=== PATIENT | female | born 1960 | race Caucasian/White ===

== ENCOUNTER 2018-10-31 11:20 | Emergency (ER) | payer BC ==
[2018-10-31 11:43] LABS: ABS Eosinophils 0.1 10^3/ul (0-0.6); ABS Lymphocytes 1.6 10^3/ul (1.0-4.8); ABS Monocytes 0.7 10^3/ul (0-0.8); ABS Neutrophils 6.1 10^3/ul (1.5-7.7); Hematocrit 45 % (35-47); Hemoglobin 15.2 g/dL (12.0-16.0); Lymphocyte % 18.7 %; Mean Corpuscular HGB Conc 34 g/dL (31-36); Mean Corpuscular Hemoglobin 31 pg (27-31); Mean Corpuscular Volume 91 fL (80-97); Mean Platelet Volume 7.5 fL (7.4-10.4); Platelet Count 273 10^3/uL (150-450); Red Blood Count 4.92 10^6 /uL (3.70-4.87); Red Cell Distribution Width 13 % (10-15); White Blood Count 8.5 10^3/uL (3.5-10.8)
--- NOTE | 2018-10-31 12:06 | ED ---
HPI Chest Pain - HPI Summary HPI Summary: A 58 y/o female presents to [facility] with a chief complaint of chest pain for the past two weeks, worsening today. At triage she rated her pain as an 8/10 in severity. She also c/o SOB and left arm numbness. The patient was walking in a garden when those symptoms started. She denies N/V, fevers or chills. She denies a Hx of bloodclots in her legs or lungs, [place], DM, or HTN. FHx of cardiac disease on mother's side. She has not had a stress test done. She is a former smoker, smoking as a teenager. - History of Current Complaint Chief Complaint: EDChestPainROMI Time Seen by Provider: 10/31/18 11:32 Hx Obtained From: Patient Onset/Duration: Started Weeks Ago, Still Present Timing: Constant, Lasting Weeks Initial Severity: Severe Current Severity: Severe Pain Intensity: 8 Pain Scale Used: 0-10 Numeric Chest Pain Location: Diffuse Chest Pain Radiates: Yes Chest Pain Radiates To:: Arm - left Aggravating Factor(s): Nothing Alleviating Factor(s): Nothing Associated Signs and Symptoms: Positive: Numbness - left arm, Shortness of Breath. Negative: Fever - Allergy/Home Medications Allergies/Adverse Reactions: Allergies Allergy/AdvReac Type Severity Reaction Status Date / Time bacitracin Allergy Rash Verified 10/31/18 11:26 phenytoin [From Dilantin] Allergy Rash Verified 10/31/18 11:26 Flu Shot Allergy See Comment Uncoded 10/31/18 11:26 PMH/Surg Hx/FS Hx/Imm Hx Endocrine/Hematology History: Denies: Hx Diabetes Cardiovascular History: Denies: Hx Hypertension, Hx Myocardial Infarction Musculoskeletal History: Denies: Hx Osteoporosis Neurological History: Reports: Other Neuro Impairments/Disorders - brain tumor with seizures occassionaly since - Surgical History Surgery Procedure, Year, and Place: brain tumor 1995 benign,appendectomy, csection,left leg deb Infectious Disease History: No Infectious Disease History: Denies: Traveled Outside the [place] in Last 30 Days - Family History Known Family History: Positive: Cardiac Disease - maternal - Social History Alcohol Use: Daily Alcohol Amount: 2-3 beers daily Substance Use Type: Reports: None Smoking Status (MU): Former Smoker Review of Systems Negative: Fever, Chills Negative: Blurred Vision Positive: Chest Pain Positive: Shortness Of Breath Negative: Vomiting, Nausea Positive: Numbness - left arm. Negative: Headache All Other Systems Reviewed And Are Negative: Yes Physical Exam - Summary Physical Exam Summary: GENERAL: Patient is a well-developed and nourished F who is lying comfortable in the stretcher. Patient is not in any acute respiratory distress. HEAD AND FACE: Normocephalic EYES: PERRLA, EOMI x 2. EARS: Hearing grossly intact. MOUTH: Oropharynx within normal limits. NECK: Supple, trachea is midline, no adenopathy, no JVD, no carotid bruit. CHEST: Symmetric, no tenderness at palpation LUNGS: Clear to auscultation bilaterally. No wheezing or crackles. CVS: Regular rate and rhythm, S1 and S2 present, no murmurs or gallops appreciated. ABDOMEN: Soft, non-tender. Bowel sounds are normal. No abnormal abdominal pulsations. EXTREMITIES: Full ROM in all major joints, no edema, no cyanosis or clubbing. NEURO: Alert and oriented x 3. No acute neurological deficits. Speech is normal and follows commands. SKIN: Dry and warm Triage Information Reviewed: Yes Vital Signs On Initial Exam: Initial Vitals Temp Pulse Resp BP Pulse Ox 97.2 F 114 16 160/112 96 10/31/18 11:22 10/31/18 11:22 10/31/18 11:22 10/31/18 11:22 10/31/18 11:22 Vital Signs Reviewed: Yes Diagnostics - Vital Signs Vital Signs Temp Pulse Resp BP Pulse Ox 10/31/18 11:37 99 15 181/119 97 10/31/18 11:36 104 17 93 10/31/18 11:22 97.2 F 114 16 160/112 96 - Laboratory Lab Results: Lab Results 10/31/18 Range/Units 11:32 WBC 8.5 (3.5-10.8) 10^3/uL RBC 4.92 H (3.70-4.87) 10^6 /uL Hgb 15.2 (12.0-16.0) g/dL Hct 45 (35-47) % MCV 91 (80-97) fL MCH 31 (27-31) pg MCHC 34 (31-36) g/dL RDW 13 (10-15) % Plt Count 273 (150-450) 10^3/uL MPV 7.5 (7.4-10.4) fL Neut % (Auto) 72.3 % Lymph % (Auto) 18.7 % [place] % (Auto) 7.7 % Eos % (Auto) 1.0 % Baso % (Auto) 0.3 % Absolute Neuts (auto) 6.1 (1.5-7.7) 10^3/ul Absolute Lymphs (auto) 1.6 (1.0-4.8) 10^3/ul Absolute Monos (auto) 0.7 (0-0.8) 10^3/ul Absolute Eos (auto) 0.1 (0-0.6) 10^3/ul Absolute Basos (auto) 0.0 (0-0.2) 10^3/ul Absolute Nucleated RBC 0.0 10^3/ul Nucleated RBC % 0.0 Result Diagrams: 10/31/18 11:32 10/31/18 08:22 Lab Statement: Any lab studies that have been ordered have been reviewed, and results considered in the medical decision making process. - Radiology CXR Radiology Interpretation Completed By: Radiologist Summary of Radiographic Findings: NO ACTIVE CARDIOPULMONARY DISEASE IS NOTED. ED physician has reviewed this imaging report. - EKG 11:28 Cardiac Rate: NL - 95 bpm EKG Rhythm: Sinus Rhythm Summary of EKG Findings: NSR at 95 bpm, left atrial enlargement. Re-Evaluation - Re-Evaluation First Eval Re-Evaluation Time: 13:50 Change: Unchanged Comment: She did not respond to NTG. Breathing in worsens her pain. Second Eval Re-Evaluation Time: 14:59 Change: Improved Comment: Pt reports feeling much better. Chest Pain Course/Dx - Course Course Of Treatment: A 58 y/o female presents to [facility] with a chief complaint of chest pain for the past two weeks, worsening today. The physical exam was unremarkable. EKG at 11:28 showed NSR at 95 bpm, left atrial enlargement. Bloodwork and chemistries obtained and are WNL. CXR impression:NO ACTIVE CARDIOPULMONARY DISEASE IS NOTED. In the ED course the patient was given Aspirin PO, and NTG but CP did not respond to NTG and so she was given Flexeril PO and Tramadol PO with much improvement. I suspect that her pain is most likely musculoskeletal, no concern for aortic dissection, No concern for PE, no elevated D-dimer, HEART Score is 2. I discussed results with patient, and she reports feeling better. She is hemodynamically stable and safe for discharge. Strict return precautions given and she will otherwise follow up with her PCP and register clerk given FHx of cardiovascular disease. - Diagnoses Provider Diagnoses: Pleuritic chest pain Discharge - Sign-Out/Discharge Documenting (check all that apply): Patient Departure - DC Patient Received Moderate/Deep Sedation with Procedure: No - Discharge Plan Condition: Stable Disposition: HOME Prescriptions: Cyclobenzaprine TAB* [Flexeril 10 MG TAB*] 10 mg PO TID #15 tab Tramadol HCl 50 mg PO TID #12 tablet MDD 3 Patient Education Materials: Chest Pain (DC) Referrals: Benjamin Arriaga MD [Primary Care Provider] - (1-3 days) Jamir Harvey MD [Medical Doctor] - (1-3 days) Additional Instructions: Follow up with your primary care physician and cardiology in 1-3 days. RETURN TO THE EMERGENCY DEPARTMENT FOR CHANGING OR WORSENING SYMPTOMS. - Billing Disposition and Condition Condition: STABLE Disposition: Home - Attestation Statements Document Initiated by Joeibe: Yes Documenting Scribe: Aman Gomes Provider For Whom Edwin is Documenting (Include Credential): Coby Juarez MD Scribe Attestation: I, Aman Gomes, scribed for Coby Juarez MD on 10/31/18 at 1723. Scribe Documentation Reviewed: Yes Provider Attestation: The documentation as recorded by the Aman squires accurately reflects the service I personally performed and the decisions made by me, Nba Juarez MD Status of Scribe Document: Viewed
[2018-10-31 12:09] LABS: Albumin 4.3 g/dL (3.2-5.2); Albumin/Globulin Ratio 1.6 (1-3); BUN/Creatinine Ratio 13.3 (8-20); Calcium 9.7 mg/dL (8.6-10.3); EGFR Non-African American 79.4 (>60); Globulin 2.7 g/dL (2-4); Potassium 4.2 mmol/L (3.5-5.0); Total Bilirubin 0.8 mg/dL (0.2-1.0)
[2018-10-31 12:14] LABS: INR 0.92 (0.82-1.09)
[2018-10-31] MEDS ORDERED: Aspirin 81 mg CHEW TAB* 81 MG TAB.CHEW PO ONE (12:54)
[2018-10-31] MEDS ORDERED: Nitroglycerin TAB 0.4 MG* 0.4 MG TAB SL ONE (12:54)
[2018-10-31] MEDS ORDERED: Cyclobenzaprine TAB* 10 MG PO ONE (13:50)
[2018-10-31] MEDS ORDERED: traMADol TAB* 50 MG PO ONE (13:51)
[2018-10-31 15:16] VITALS: BP 140/107
== END 2018-10-31 15:17 | disposition home or self-care (01) ==
LOC: ED 11:20
DX: R07.81 Pleurodynia (principal); I51.7 Cardiomegaly; R06.02 Shortness of breath; R20.0 Anesthesia of skin; Z88.3 Allergy status to other anti-infective agents; Z88.7 Allergy status to serum and vaccine; Z88.8 Allergy status to other drugs, medicaments and biological substances; Z87.891 Personal history of nicotine dependence
CPT/HCPCS: 36415; 71045; 80053; 83880; 84484; 85025; 85379; 85610; 93005; 99284; A9270-GY